=== PATIENT | female | born 1990 | race Caucasian/White ===

== ENCOUNTER 2016-05-31 22:18 | Emergency (ER) | payer OTHER ==
[~2016-05-31] VITALS: Ht 154.9 cm; Wt 92.6 kg
[~2016-05-31 22:18] MED LIST: ALBUTEROL SULF8.5 GM IH; BACTRIM,SEPT1 TABLET PO; FLOVENT 44120 INHALA IH; KEFLEX250 MG/5 M PO; KEFLEX500 MG PO; KENALOG,ARISTOC80 G1 TP; MOTRIN800 MG PO; NEBULIZER MC; NOHOMEMEDS; PAIN RELIE; PHENERGAN-CODE120 ML PO; PREDNISONE50 MG PO; PROMETHAZINE HC25 M1 PO; PROVENTIL HFA6.7 GM IH; PROVENTIL,2.5 MG/3 M IH; PYRIDIUM100 MG PO; TAMIFLU75 MG PO; TESSALON PERLE100 MG PO; ZITHROMAX250 MG PO; ZOFRAN ODT4 MG PO; ZOFRAN4 MG PO; ZYRTEC10 M2 PO; ZYRTEC10 M3 PO
[2016-05-31 22:24] VITALS: BP 120/82
[2016-05-31 23:05] LABS: HEMATOCRIT 36.6 % (36.0-46.0); MCH 30.8 PG (29.0-34.0); MCHC 33.3 G/DL (30.0-36.0); MCV 92.4 FL (83-99); MEAN PLAT.VOLUME 9.2 uM^3 (9.5-12.4); PLATELET COUNT 245 K/uL (156-360); RBC DIS.WIDTH-CV 11.6 % (11.8-14.6); RBC DIS.WIDTH-SD 39.7 % (39-53); RED BLOOD COUNT 3.96 M/uL (3.80-5.20); WHITE BLOOD COUNT 5.3 K/uL (4.1-10.2)
[2016-05-31 23:13] LABS: CHLORIDE 106 mEq/L (99-109); POTASSIUM 3.8 mEq/L (3.7-5.4); SODIUM 141 mEq/L (136-147)
[2016-05-31 23:15] LABS: GLUCOSE 87 mg/dL (70-99)
[2016-05-31 23:16] LABS: ANION GAP 9 MEQ/L (2-14)
[2016-05-31 23:18] LABS: SERUM ETHYL ALCOHOL < 10 mg/dL
[2016-05-31 23:19] LABS: GFR ESTIMATE (CALCULATED) > 59 mL/min/
[2016-05-31 23:21] LABS: UREA NITROGEN (BUN) 13 mg/dL (9-23)
[2016-05-31 23:22] LABS: SALICYLATE < 5.0 MG/DL (15-30)
== END 2016-06-01 01:07 | disposition left against medical advice (07) ==
LOC: EME 22:18
PROVIDERS: Emergency Medicine
DX: R53.1 Weakness (principal); Z53.21 Procedure and treatment not carried out due to patient leaving prior to being seen by health care provider
CPT/HCPCS: 80048; 84443; 85027; 99281; G0480

== ENCOUNTER 2016-06-25 23:36 | Emergency (ER) | payer OTHER ==
[~2016-06-25] VITALS: Ht 152.4 cm; Wt 87.5 kg
[2016-06-26 00:19] LABS: MCH 30.9 PG (29.0-34.0); MCHC 33.9 G/DL (30.0-36.0); MCV 91.1 FL (83-99); MEAN PLAT.VOLUME 9.1 uM^3 (9.5-12.4); PLATELET COUNT 258 K/uL (156-360); RBC DIS.WIDTH-CV 11.9 % (11.8-14.6); RBC DIS.WIDTH-SD 39.7 % (39-53); RED BLOOD COUNT 3.95 M/uL (3.80-5.20); WHITE BLOOD COUNT 5.2 K/uL (4.1-10.2)
[2016-06-26 00:23] LABS: CHLORIDE 109 mEq/L (99-109); POTASSIUM 3.9 mEq/L (3.7-5.4); SODIUM 140 mEq/L (136-147)
[2016-06-26 00:25] LABS: GLUCOSE 100 mg/dL (70-99)
[2016-06-26 00:26] LABS: ANION GAP 8 MEQ/L (2-14)
[2016-06-26 00:27] LABS: TOTAL BILIRUBIN 0.3 mg/dL (0.0-1.0)
[2016-06-26 00:28] LABS: ALKALINE PHOSPHATASE 35 IU/L (3-129)
[2016-06-26 00:29] LABS: GFR ESTIMATE (CALCULATED) > 59 mL/min/
[2016-06-26 00:30] LABS: UREA NITROGEN (BUN) 10 mg/dL (9-23)
[2016-06-26 00:32] LABS: LIPASE 24 U/L (1.0-51.0)
[2016-06-26 00:33] LABS: ADD MIUA? YES; BILIRUBIN NEGATIVE; BLOOD NEGATIVE; COLOR YELLOW ((YELLOW)); GLUCOSE (STRIP) NEGATIVE; KETONES NEGATIVE; LEUKOCYTES MODERATE; NITRITE NEGATIVE; PROTEIN (STRIP) NEGATIVE; SPECIFIC GRAVITY 1.006 (1.000-1.030); UROBILINOGEN 0.2 MG/DL (0.2-1.0)
[2016-06-26 00:37] LABS: QUANTITATIVE HCG < 4.0 MIU/ML
[2016-06-26 01:07] LABS: EPITHELIAL CELLS 2+ /HPF; MUCUS NONE SEEN /LPF; RED BLOOD CELLS NONE SEEN /HPF (0-5)
[2016-06-26 01:08] LABS: AMORPHOUS PHOSPHATE CRYSTALS 2+; BACTERIA 1+ /HPF; CASTS NONE SEEN /LPF; CRYSTALS PRESENT; UCUL ADDED? NO
[2016-06-26] MEDS ORDERED: MIRALAX255 GM PO (01:10)
[2016-06-26] MEDS ORDERED: KEFLEX500 MG PO (01:10)
[2016-06-26 01:33] VITALS: BP 117/62
== END 2016-06-26 01:35 | disposition home or self-care (01) ==
LOC: EME 23:36
DX: R10.84 Generalized abdominal pain (principal); N30.90 Cystitis, unspecified without hematuria; K59.00 Constipation, unspecified; J45.909 Unspecified asthma, uncomplicated; Z88.0 Allergy status to penicillin; J30.1 Allergic rhinitis due to pollen; Z88.8 Allergy status to other drugs, medicaments and biological substances; F17.200 Nicotine dependence, unspecified, uncomplicated
CPT/HCPCS: 74000; 80053; 81003; 83690; 84702; 85027; 99281; 99284

== ENCOUNTER 2016-06-27 13:39 | Emergency (ER) | payer OTHER ==
[~2016-06-27] VITALS: Ht 152.4 cm; Wt 86.0 kg
[~2016-06-27 13:39] MED LIST changes: +MIRALAX255 GM PO
[2016-06-27 13:57] VITALS: BP 123/67
[2016-06-29 13:56] LABS: CHLAMYDIA TRACHOMATIS NEGATIVE; NEISSERIA GONORRHOEAE NEGATIVE
== END 2016-06-27 15:19 | disposition home or self-care (01) ==
LOC: EME 13:39
PROVIDERS: Physician Assistant Medical
DX: Z11.3 Encounter for screening for infections with a predominantly sexual mode of transmission (principal)
CPT/HCPCS: 87491; 87591; 99281; 99284

== ENCOUNTER 2016-07-17 09:16 | Emergency (ER) | payer OTHER ==
[~2016-07-17] VITALS: Ht 154.9 cm; Wt 86.4 kg
[2016-07-17 10:49] LABS: HEMATOCRIT 37.1 % (36.0-46.0); MCH 31.3 PG (29.0-34.0); MCHC 33.2 G/DL (30.0-36.0); MCV 94.4 FL (83-99); MEAN PLAT.VOLUME 9.1 uM^3 (9.5-12.4); PLATELET COUNT 235 K/uL (156-360); RBC DIS.WIDTH-CV 11.9 % (11.8-14.6); RBC DIS.WIDTH-SD 42.1 % (39-53); RED BLOOD COUNT 3.93 M/uL (3.80-5.20); WHITE BLOOD COUNT 6.7 K/uL (4.1-10.2)
[2016-07-17 11:05] LABS: CHLORIDE 106 mEq/L (99-109); POTASSIUM 3.6 mEq/L (3.7-5.4); SODIUM 139 mEq/L (136-147)
[2016-07-17 11:07] LABS: GLUCOSE 96 mg/dL (70-99)
[2016-07-17 11:08] LABS: ANION GAP 9 MEQ/L (2-14)
[2016-07-17 11:09] LABS: TOTAL BILIRUBIN 0.6 mg/dL (0.0-1.0)
[2016-07-17 11:11] LABS: ALKALINE PHOSPHATASE 29 IU/L (3-129); GFR ESTIMATE (CALCULATED) > 59 mL/min/
[2016-07-17 11:12] LABS: UREA NITROGEN (BUN) 12 mg/dL (9-23)
[2016-07-17 11:14] LABS: LIPASE 13 U/L (1.0-51.0)
[2016-07-17 11:22] LABS: QUANTITATIVE HCG < 4.0 MIU/ML
[2016-07-17 11:30] LABS: ADD MIUA? YES; BILIRUBIN NEGATIVE; BLOOD NEGATIVE; COLOR YELLOW ((YELLOW)); GLUCOSE (STRIP) NEGATIVE; KETONES NEGATIVE; LEUKOCYTES NEGATIVE; NITRITE NEGATIVE; PROTEIN (STRIP) NEGATIVE; SPECIFIC GRAVITY 1.014 (1.000-1.030); UROBILINOGEN 0.2 MG/DL (0.2-1.0)
[2016-07-17] MEDS ORDERED: BENTYL20 MG PO (11:43)
[2016-07-17] MEDS ORDERED: NEXIUM20 MG PO (11:43)
[2016-07-17 11:47] LABS: BACTERIA NONE SEEN /HPF; EPITHELIAL CELLS 1+ /HPF; MUCUS TRACE /LPF; RED BLOOD CELLS 0-5 /HPF (0-5); WHITE BLOOD CELLS 0-5 /HPF (0-5)
[2016-07-17 12:03] VITALS: BP 119/74
== END 2016-07-17 12:04 | disposition home or self-care (01) ==
LOC: EME 09:16
PROVIDERS: Nurse Practitioner Family
DX: R10.11 Right upper quadrant pain (principal); K29.70 Gastritis, unspecified, without bleeding; Z88.0 Allergy status to penicillin; Z88.8 Allergy status to other drugs, medicaments and biological substances; F17.200 Nicotine dependence, unspecified, uncomplicated
CPT/HCPCS: 76705; 80053; 81003; 83690; 84702; 85027; 99281; 99284

== ENCOUNTER 2016-09-13 08:21 | Emergency (ER) | payer OTHER ==
[~2016-09-13] VITALS: Ht 152.4 cm; Wt 88.6 kg
[~2016-09-13 08:21] MED LIST changes: +BENTYL20 MG PO; +NEXIUM20 MG PO
[2016-09-13] MEDS ORDERED: PROAIR HFA8.5 GM IH (10:06)
[2016-09-13] MEDS ORDERED: PROVENTIL,2.5 MG/3 M IH (10:06)
[2016-09-13] MEDS ORDERED: ROBITUSSIN DM118 ML PO (10:15)
[2016-09-13] MEDS ORDERED: TESSALON PERLE100 MG PO (10:15)
[2016-09-13 10:40] VITALS: BP 98/56
== END 2016-09-13 10:41 | disposition home or self-care (01) ==
LOC: EME 08:21
DX: J45.901 Unspecified asthma with (acute) exacerbation (principal); J06.9 Acute upper respiratory infection, unspecified; F17.200 Nicotine dependence, unspecified, uncomplicated; Z71.6 Tobacco abuse counseling
CPT/HCPCS: 71020; 94640; 99281; 99284; J1100

== ENCOUNTER 2017-11-20 02:44 | Emergency (ER) | payer OTHER ==
[~2017-11-20] VITALS: Ht 154.9 cm; Wt 90.8 kg
[~2017-11-20 02:44] MED LIST changes: +PROAIR HFA8.5 GM IH; +ROBITUSSIN DM118 ML PO
[2017-11-20] MEDS ORDERED: TYLENOL REGULA325 MG PO (05:43)
[2017-11-20] MEDS ORDERED: REGLAN10 MG PO (05:43)
[2017-11-20 06:07] VITALS: BP 104/58
== END 2017-11-20 06:10 | disposition home or self-care (01) ==
LOC: EME 02:44
DX: J45.909 Unspecified asthma, uncomplicated (principal); G43.909 Migraine, unspecified, not intractable, without status migrainosus; F17.200 Nicotine dependence, unspecified, uncomplicated; Z88.0 Allergy status to penicillin; Z88.8 Allergy status to other drugs, medicaments and biological substances; J45.901 Unspecified asthma with (acute) exacerbation
CPT/HCPCS: 71046; 94640; 99281; 99285; J2765; J3475; J7030